=== PATIENT | male | born 1960 | race African-American/Black ===

== ENCOUNTER 2019-05-15 08:57 | Emergency (ER) | payer SELFPAY | END 2019-05-15 10:06 | disposition left against medical advice (07) | LOC: ERS 08:57 | DX: Z53.21 Procedure and treatment not carried out due to patient leaving prior to being seen by health care provider (principal) ==

== ENCOUNTER 2023-05-18 10:50 | Inpatient (IN) | payer OTHER, MEDICARE ==
[~2023-05-18 10:50] MED LIST: Iopamidol-370 76% 500 ML MDV (1 ML CHARGE) ONE
[2023-05-18] MEDS ORDERED: Acetaminophen 500 MG TAB ONE (13:22)
[2023-05-18] MEDS ORDERED: Bacitracin 1 PK ONE (13:22)
[2023-05-18] MEDS ORDERED: Boostrix 0.5 ML (Tdap) VIAL (>/=7 yrs of age) ONE (13:23)
[2023-05-18] MEDS ORDERED: Ketorolac Tromethamine 30 MG/ML VIAL ONE (13:23)
[2023-05-18 13:25] LABS: #Monocytes 1.2 thou/uL (0.11-0.59); #Neutrophils 19.5 thou/uL (1.40-6.50); %Basophils 0.2 % (0.0-1.0); %Lymphocytes 8.3 % (21.0-51.0); %Monocytes 5.1 % (0.0-10.0); %Neutrophils 85.7 % (42.0-75.0); Hematocrit 39.9 % (42.0-52.0); Hemoglobin 13.2 g/dL (14.0-18.0); Mean Corpuscular HGB CONC 33.1 g/dL (32.0-36.0); Mean Corpuscular Hemoglobin 30.6 pg (27.0-31.0); Mean Corpuscular Volume 92.4 fl (78.0-98.0); Mean Platelet Volume 9.3 fL (7.4-10.4); Platelet Count 217 10x3/uL (130-400); RBC Distribution Width 12.9 % (11.5-14.5); Red Blood Cell (RBC) Count 4.32 mill/uL (4.70-6.10); White Blood Cell (WBC) Count 22.8 10x3/uL (4.8-10.8)
[2023-05-18 13:48] LABS: ALT (SGPT) 642 U/L (8-55); AST (SGOT) 544 U/L (5-34); Albumin 4.1 g/dL (3.5-5.0); Alkaline Phosphatase 145 U/L (40-110); Anion Gap 17 mmol/L (10-20); BUN (Urea Nitrogen) 8 mg/dL (8.4-25.7); Bilirubin, Total 0.4 mg/dL (0.2-1.2); Calc. Creatinine Clearance 0 mL/min (70-130); Calcium 9.4 mg/dL (7.8-10.44); Carbon Dioxide 20 mmol/L (22-29); Chloride 103 mmol/L (98-107); Estimated GFR 100; Globulin 3.1 g/dL (2.4-3.5); Glucose 153 mg/dL (70-105); Potassium 3.4 mmol/L (3.5-5.1); Protein, Total 7.2 g/dL (6.0-8.3); Sodium 137 mmol/L (136-145)
[2023-05-18] MEDS ORDERED: Ondansetron PF 4 MG/2 ML Vial ONE (14:29)
[2023-05-18] MEDS ORDERED: Tranexamic Acid 1,000 MG/10 ML VIAL ONE (14:43)
[2023-05-18] MEDS ORDERED: Morphine 4 MG/ML VIAL ONE (14:52)
[2023-05-18] MEDS ORDERED: Glucagon 1 MG/ML KIT IM PRN (16:06)
[2023-05-18] MEDS ORDERED: TETANUS, DIPHTHERIA TOX,ADULT (TDVAX) 0.5 ML VIAL IM ONE (16:06)
[2023-05-18] MEDS ORDERED: Dextrose 50% Abboject 50 ML SYRINGE SLOW IVP PRN (16:06)
[2023-05-18] MEDS ORDERED: Dextrose 5% in Water 1,000 ML IV PRN (16:06)
[2023-05-18] MEDS ORDERED: Ondansetron PF 4 MG/2 ML Vial IVP PRN (16:06)
[2023-05-18] MEDS ORDERED: Ibuprofen 200 MG TAB PO SCH (16:30)
[2023-05-18] MEDS ORDERED: Ibuprofen 200 MG TAB ONE (17:05)
[2023-05-18] MEDS ORDERED: traMADol HCl 50 MG TAB ONE (18:45)
[2023-05-18] MEDS: traMADol HCl 50 MG TAB PO SCH ×2 (18:51→23:47)
[2023-05-18] MEDS: Ferrous Sulfate 325 MG TAB PO SCH (19:00)
[2023-05-18 19:58] VITALS: BMI 28.9
[2023-05-18 20:08] LABS: Hematocrit 34.1 % (42.0-52.0); Hemoglobin 11.9 g/dL (14.0-18.0)
[2023-05-18 20:33] LABS: INR-International Normal Ratio 1.1; PTT 25.2 sec (22.9-36.1); Prothrombin Time 14.9 sec (12.0-14.7)
[2023-05-18] MEDS: traMADol HCl 50 MG TAB PO PRN (21:16)
[2023-05-18] MEDS: Famotidine 20 MG TAB PO SCH (21:17)
[2023-05-18] MEDS: Gabapentin 300 MG CAP PO SCH (21:17)
[2023-05-18] MEDS: Ibuprofen 200 MG TAB PO SCH (21:17)
[2023-05-18] MEDS ORDERED: Lactated Ringer's 1,000 ML IV SCH (23:45)
[2023-05-19] MEDS: traMADol HCl 50 MG TAB PO SCH ×4 (05:08→22:09)
[2023-05-19] MEDS: Ibuprofen 200 MG TAB PO SCH ×3 (05:09→22:08)
[2023-05-19 05:30] LABS: Hemoglobin 11.6 g/dL (14.0-18.0)
[2023-05-19 05:56] LABS: Anion Gap 12 mmol/L (10-20); BUN (Urea Nitrogen) 13 mg/dL (8.4-25.7); Calc. Creatinine Clearance 110 mL/min (70-130); Calcium 8.5 mg/dL (7.8-10.44); Carbon Dioxide 29 mmol/L (22-29); Chloride 99 mmol/L (98-107); Estimated GFR 98; Glucose 104 mg/dL (70-105); Magnesium 1.6 mg/dL (1.6-2.6); Phosphorus 3.5 mg/dL (2.3-4.7); Potassium 3.6 mmol/L (3.5-5.1); Sodium 136 mmol/L (136-145)
[2023-05-19 06:02] LABS: ALT (SGPT) 720 U/L (8-55); AST (SGOT) 613 U/L (5-34); Albumin 3.8 g/dL (3.5-5.0); Alkaline Phosphatase 128 U/L (40-110); Bilirubin, Direct 0.5 mg/dL (0.1-0.3); Bilirubin, Total 1.2 mg/dL (0.2-1.2); Protein, Total 6.7 g/dL (6.0-8.3)
[2023-05-19] MEDS ORDERED: Citalopram 20 MG TAB PO SCH (09:00)
[2023-05-19] MEDS: Ascorbic Acid 500 mg Chewable Tablet PO SCH (09:07)
[2023-05-19] MEDS: Ferrous Sulfate 325 MG TAB PO SCH ×2 (09:07→17:46)
[2023-05-19] MEDS: Amlodipine 5 MG TAB PO SCH (09:08)
[2023-05-19] MEDS: Senokot S 8.6-50 MG TAB PO SCH ×2 (09:08→22:08)
[2023-05-19] MEDS: Famotidine 20 MG TAB PO SCH ×2 (09:08→22:10)
[2023-05-19] MEDS: Citalopram 20 MG TAB PO SCH (09:09)
[2023-05-19] MEDS: Gabapentin 300 MG CAP PO SCH ×3 (09:09→22:06)
[2023-05-19] MEDS: traMADol HCl 50 MG TAB PO PRN (09:13)
[2023-05-19] MEDS ORDERED: Morphine 2 MG/ML VIAL SLOW IVP PRN (16:06)
[2023-05-19] MEDS ORDERED: risperiDONE 1 MG TAB PO SCH (21:00)
[2023-05-19] MEDS: risperiDONE 1 MG TAB PO SCH (22:11)
[2023-05-20] MEDS: traMADol HCl 50 MG TAB PO PRN (01:40)
[2023-05-20] MEDS: Ibuprofen 200 MG TAB PO SCH ×3 (05:49→21:25)
[2023-05-20] MEDS: traMADol HCl 50 MG TAB PO SCH ×3 (05:50→18:25)
[2023-05-20 06:03] LABS: #Eosinphils 0.1 thou/uL (0.0-0.7); #Monocytes 0.7 thou/uL (0.11-0.59); #Neutrophils 9.5 thou/uL (1.40-6.50); %Basophils 0.2 % (0.0-1.0); %Eosinophils 0.6 % (0.0-10.0); %Lymphocytes 18.6 % (21.0-51.0); %Monocytes 5.3 % (0.0-10.0); %Neutrophils 74.8 % (42.0-75.0); Hemoglobin 10.3 g/dL (14.0-18.0); Mean Corpuscular HGB CONC 34.3 g/dL (32.0-36.0); Mean Corpuscular Hemoglobin 30.4 pg (27.0-31.0); Mean Corpuscular Volume 88.5 fl (78.0-98.0); Mean Platelet Volume 9.4 fL (7.4-10.4); Platelet Count 139 10x3/uL (130-400); Red Blood Cell (RBC) Count 3.39 mill/uL (4.70-6.10); White Blood Cell (WBC) Count 12.7 10x3/uL (4.8-10.8)
[2023-05-20 06:32] LABS: ALT (SGPT) 583 U/L (8-55); AST (SGOT) 314 U/L (5-34); Albumin 3.5 g/dL (3.5-5.0); Alkaline Phosphatase 119 U/L (40-110); Anion Gap 10 mmol/L (10-20); BUN (Urea Nitrogen) 11 mg/dL (8.4-25.7); Bilirubin, Total 0.5 mg/dL (0.2-1.2); Calc. Creatinine Clearance 115 mL/min (70-130); Calcium 8.8 mg/dL (7.8-10.44); Carbon Dioxide 28 mmol/L (22-29); Chloride 98 mmol/L (98-107); Estimated GFR 99; Glucose 112 mg/dL (70-105); Magnesium 1.8 mg/dL (1.6-2.6); Phosphorus 2.8 mg/dL (2.3-4.7); Potassium 3.5 mmol/L (3.5-5.1); Protein, Total 6.5 g/dL (6.0-8.3); Sodium 132 mmol/L (136-145)
[2023-05-20] MEDS: Famotidine 20 MG TAB PO SCH ×2 (09:56→21:25)
[2023-05-20] MEDS: Ascorbic Acid 500 mg Chewable Tablet PO SCH (09:56)
[2023-05-20] MEDS: Ferrous Sulfate 325 MG TAB PO SCH ×2 (09:56→18:25)
[2023-05-20] MEDS: Amlodipine 5 MG TAB PO SCH (09:56)
[2023-05-20] MEDS: Citalopram 20 MG TAB PO SCH (09:57)
[2023-05-20] MEDS: Gabapentin 300 MG CAP PO SCH ×3 (09:57→21:24)
[2023-05-20] MEDS: Senokot S 8.6-50 MG TAB PO SCH ×2 (10:01→21:26)
[2023-05-20] MEDS: risperiDONE 1 MG TAB PO SCH (21:25)
[2023-05-21] MEDS: traMADol HCl 50 MG TAB PO SCH ×5 (00:05→22:41)
[2023-05-21] MEDS: Ibuprofen 200 MG TAB PO SCH ×3 (05:37→22:00)
[2023-05-21 07:53] LABS: #Eosinphils 0.1 thou/uL (0.0-0.7); #Monocytes 0.7 thou/uL (0.11-0.59); #Neutrophils 7.7 thou/uL (1.40-6.50); %Basophils 0.2 % (0.0-1.0); %Lymphocytes 14.7 % (21.0-51.0); %Neutrophils 76.7 % (42.0-75.0); Hematocrit 28.5 % (42.0-52.0); Hemoglobin 9.8 g/dL (14.0-18.0); Mean Corpuscular HGB CONC 34.4 g/dL (32.0-36.0); Mean Corpuscular Hemoglobin 30.5 pg (27.0-31.0); Mean Corpuscular Volume 88.8 fl (78.0-98.0); Mean Platelet Volume 9.2 fL (7.4-10.4); Platelet Count 139 10x3/uL (130-400); RBC Distribution Width 13.1 % (11.5-14.5); Red Blood Cell (RBC) Count 3.21 mill/uL (4.70-6.10)
[2023-05-21] MEDS: Amlodipine 5 MG TAB PO SCH (08:37)
[2023-05-21] MEDS: Senokot S 8.6-50 MG TAB PO SCH ×2 (08:37→22:00)
[2023-05-21] MEDS: Ferrous Sulfate 325 MG TAB PO SCH ×2 (08:37→18:07)
[2023-05-21] MEDS: Famotidine 20 MG TAB PO SCH ×2 (08:37→21:58)
[2023-05-21] MEDS: Ascorbic Acid 500 mg Chewable Tablet PO SCH (08:37)
[2023-05-21] MEDS: Citalopram 20 MG TAB PO SCH (08:37)
[2023-05-21] MEDS: Gabapentin 300 MG CAP PO SCH ×3 (08:38→21:58)
[2023-05-21 08:42] LABS: ALT (SGPT) 365 U/L (8-55); AST (SGOT) 112 U/L (5-34); Albumin 3.4 g/dL (3.4-4.8); Alkaline Phosphatase 112 U/L (40-110); Anion Gap 14 mmol/L (10-20); BUN (Urea Nitrogen) 10 mg/dL (8.4-25.7); Bilirubin, Total 0.5 mg/dL (0.2-1.2); Calc. Creatinine Clearance 132 mL/min (70-130); Calcium 8.7 mg/dL (7.8-10.44); Carbon Dioxide 25 mmol/L (23-31); Chloride 100 mmol/L (98-107); Estimated GFR 103; Glucose 114 mg/dL (80-115); Potassium 3.8 mmol/L (3.5-5.1); Protein, Total 6.4 g/dL (5.8-8.1); Sodium 135 mmol/L (136-145)
[2023-05-21] MEDS: risperiDONE 1 MG TAB PO SCH (21:59)
[2023-05-21] MEDS ORDERED: Nicotine 14 MG PATCH TOP SCH (22:30)
[2023-05-22] MEDS: Ibuprofen 200 MG TAB PO SCH (05:00)
[2023-05-22] MEDS: traMADol HCl 50 MG TAB PO SCH ×2 (05:01→11:32)
[2023-05-22 07:24] LABS: #Eosinphils 0.1 thou/uL (0.0-0.7); #Neutrophils 5.2 thou/uL (1.40-6.50); %Basophils 0.1 % (0.0-1.0); %Eosinophils 1.6 % (0.0-10.0); %Lymphocytes 24.7 % (21.0-51.0); %Monocytes 11.2 % (0.0-10.0); %Neutrophils 61.7 % (42.0-75.0); Hematocrit 28.5 % (42.0-52.0); Hemoglobin 9.7 g/dL (14.0-18.0); Mean Corpuscular Hemoglobin 30.4 pg (27.0-31.0); Mean Corpuscular Volume 89.3 fl (78.0-98.0); Mean Platelet Volume 9.1 fL (7.4-10.4); Platelet Count 173 10x3/uL (130-400); RBC Distribution Width 13.3 % (11.5-14.5); Red Blood Cell (RBC) Count 3.19 mill/uL (4.70-6.10); White Blood Cell (WBC) Count 8.5 10x3/uL (4.8-10.8)
[2023-05-22] MEDS: Gabapentin 300 MG CAP PO SCH (08:29)
[2023-05-22] MEDS: Amlodipine 5 MG TAB PO SCH (08:30)
[2023-05-22] MEDS: Ascorbic Acid 500 mg Chewable Tablet PO SCH (08:30)
[2023-05-22] MEDS: Citalopram 20 MG TAB PO SCH (08:30)
[2023-05-22] MEDS: Ferrous Sulfate 325 MG TAB PO SCH (08:30)
[2023-05-22] MEDS: Senokot S 8.6-50 MG TAB PO SCH (08:30)
[2023-05-22] MEDS: Famotidine 20 MG TAB PO SCH (08:30)
[2023-05-22 12:27] VITALS: BP 143/77; TEMP 98.8
== END 2023-05-22 13:20 | disposition home or self-care (01) | DRG 964 ==
LOC: ERS 10:50 → ERHOLD 15:58 → SURG A 19:31
PROVIDERS: ADMIT Surgery; ATTEND Surgery
PROC: 2W3QX1Z Immobilization of Right Lower Leg using Splint (ICD-10-PCS; principal; 2023-05-18)
DX: S36.113A Laceration of liver, unspecified degree, initial encounter (principal); S22.039A Unspecified fracture of third thoracic vertebra, initial encounter for closed fracture; S72.401A Unspecified fracture of lower end of right femur, initial encounter for closed fracture; S72.424A Nondisplaced fracture of lateral condyle of right femur, initial encounter for closed fracture; S22.049A Unspecified fracture of fourth thoracic vertebra, initial encounter for closed fracture; S22.059A Unspecified fracture of T5-T6 vertebra, initial encounter for closed fracture; S22.069A Unspecified fracture of T7-T8 vertebra, initial encounter for closed fracture; F17.210 Nicotine dependence, cigarettes, uncomplicated; V29.401A Electric (assisted) bicycle driver injured in collision with unspecified motor vehicles in traffic accident, initial encounter; Z82.49 Family history of ischemic heart disease and other diseases of the circulatory system; S42.101A Fracture of unspecified part of scapula, right shoulder, initial encounter for closed fracture; E04.1 Nontoxic single thyroid nodule; S40.811A Abrasion of right upper arm, initial encounter; S60.512A Abrasion of left hand, initial encounter; F25.9 Schizoaffective disorder, unspecified
CPT/HCPCS: 29505; 36415; 36416; 70450; 71260; 72100; 72125; 74177; 80048; 80053; 80076; 83690; 83735; 84100; 85014; 85018; 85025; 85610; 85730; 86850; 86900; 86901; 90715; 93005; 96374; 96375; J1885; J2270; J2405; J7120; Q9967

== ENCOUNTER 2023-09-04 09:40 | Emergency (ER) | payer MEDICARE, OTHER ==
[2023-09-04] MEDS ORDERED: Acetaminophen 500 MG TAB ONE (10:43)
[2023-09-04] MEDS ORDERED: Ipratropium/Albuterol 3 ML NEB ONE (10:51)
[2023-09-04 11:15] LABS: SARS-CoV-2 NAA Rapid Test Not Detected (NotDetected)
[2023-09-04] MEDS ORDERED: Dexamethasone 10 MG/ML VIAL ONE (11:34)
== END 2023-09-04 12:20 | disposition home or self-care (01) ==
LOC: ERS 09:40
DX: J10.1 Influenza due to other identified influenza virus with other respiratory manifestations (principal); F17.210 Nicotine dependence, cigarettes, uncomplicated
CPT/HCPCS: 0240U; 71045; 93005; 94640; J1100; J7620